=== PATIENT | male | born 1985 | race Caucasian/White ===

== ENCOUNTER 2021-06-22 23:57 | Emergency (ER) | payer MEDICARE ==
--- OUTSIDE RECORDS SUMMARY | 2021-06-23 | XMS REPORT | Continuity of Care Document ---
:1985 Author Organization [facility] t Address [address] [place] [address] Care Team Providers Name Role Phone Margaux Rogers Attending Clinician Unavailable Payers Payer Name Policy Type Policy Number Effective Date Expiration Date S ource Problems This patient has no known problems. Allergies, Adverse Reactions, Alerts Allergy Allergy Status Severity Reaction(s) Onset Inactive Treating Comm ents Source Name Type Date Date Clinician No Known DA [facility] ([place] Medications This patient has no known medications. Procedures This patient has no known procedures. Encounters Start End Encounter Admission Attending Care Care Encounter Source Date/Time Date/Time Type Type Clinicians Facility Department ID 2020-12-13 2020-12-13 Outpatient WENDY Rogers [facility] [id number] [facility] [address] 08:45:00 08:45:00 [id number] [facility] [place] ([place]) Results Test Description Test Time Test Comments Results Result Comments Source MRI Lower Ext Jt Rt WO Con [facility]: ARTEMIO MENSAH : 1985 Sex: M Pt Name: ARTEMIO MENSAH [address] Phys: Koko Rogers MD [place], [place] [id number] : 1985 Age: 35 SEX:M [phone] Exam Date: 12/13/20 Status: REG CLI Acct: [id number] Loc: [facility] Pt Unit #: [id number] Report #: [id number] CC: Koko Rogers MD MRI REPORT Order # Category/Exam [id number] MRI/MRI Lower Ext Jt Rt WO Con ([id number]): . Results MRI of right foot performed without contrast enhancement: HISTORY: Concern for stress fracture of metatarsal. COMPARISON: None. FINDINGS: This examination was performed for evaluation of the forefoot in the area of patient's pain. The marrow signal change within the phalanges and metatarsals are normal. No signs of any stress type reaction or fracture. No evidence of any myositis type change. No fluid within the soft tissues. Lisfranc's joint complex appears intact. Lisfranc ligament is intact. IMPRESSION: No evidence of stress reaction or fracture. Reported By: Jeff Hennessy MD Electronically Signed Date/Time: 12/13/20 1017 Technologist: CONNIE Dictated Date/Time: 12/13/20 1015 Transcribed Date/Time:
--- NOTE | 2021-06-23 02:49 | ER ---
Nurse's Notes [facility] Name: Suresh Soto Age: 36 yrs Sex: Male : 1985 Arrival Date: 06/22/2021 Time: 23:59 Bed 2 Private MD: Diagnosis: Foreign body to the left fourth phalanx, eddie, initial visit Presentation: 06/23 00:03 Chief complaint: Patient states: treble hook in ring finger of left hand. Coronavirus lg3 screen: Client denies travel out of the [place] in the last 14 days. At this time, the client does not indicate any symptoms associated with coronavirus-19. Ebola Screen: No symptoms or risks identified at this time. Initial Sepsis Screen: Does the patient meet any 2 criteria? No. Patient's initial sepsis screen is negative. Initial Sepsis Screen: Does the patient have a suspected source of infection? No. Patient's initial sepsis screen is negative. Risk Assessment: Do you want to hurt yourself or someone else? Patient reports no desire to harm self or others. Onset of symptoms was June 23, 2021. 00:03 Method Of Arrival: Ambulatory lg3 00:03 Acuity: GEOR[place]ES 3 lg3 Triage Assessment: 00:13 General: Appears in no apparent distress. uncomfortable, Behavior is calm, cooperative. lg3 Pain: Complains of pain in left hand Pain currently is 5 out of 10 on a pain scale. EENT: No deficits noted. No signs and/or symptoms were reported regarding the EENT system. Neuro: No deficits noted. Level of Consciousness is awake, alert, obeys commands, Oriented to person, place, time, situation. Cardiovascular: No deficits noted. Denies chest pain, nausea, shortness of breath. Respiratory: No deficits noted. Airway is patent Trachea midline Respiratory effort is even, unlabored, Respiratory pattern is regular, symmetrical. GI: No deficits noted. No signs and/or symptoms were reported involving the gastrointestinal system. Abdomen is round non-distended. : No deficits noted. No signs and/or symptoms were reported regarding the genitourinary system. Derm: Skin is intact, is healthy with good turgor, Skin is dry, fish hook to left ring finger. Musculoskeletal: No deficits noted. No signs and/or symptoms reported regarding the musculoskeletal system. Circulation, motion, and sensation intact. Capillary refill < 3 seconds, Range of motion: intact in all extremities. Injury Description: Puncture. Historical: - Allergies: 00:16 No Known Allergies; lg3 - Home Meds: 00:16 Claritin-D 24 Hour Oral [Active]; lg3 - PMHx: 00:16 allergies; lg3 - PSHx: 00:15 None; lg3 - Immunization history:: Adult Immunizations up to date, Client reports having NOT received the Covid vaccine. Last tetanus immunization: unknown. - Social history:: Smoking status: Patient reports the use of cigarette tobacco products, smokes one pack cigarettes per day. Patient uses alcohol, on a daily basis. Patient/guardian denies using street drugs, IV drugs. Screenin:15 Abuse screen: Denies threats or abuse. Denies injuries from another. Nutritional lg3 screening: No deficits noted. Tuberculosis screening: No symptoms or risk factors identified. Fall Risk None identified. Vital Signs: 00:03 BP 145 / 76; Pulse 91; Resp 16; Temp 98.5; Pulse Ox 99% on R/A; Weight 161.03 kg (R); lg3 Height 6 ft. 2 in. (187.96 cm) (R); Pain 5/10; 00:03 Body Mass Index 45.58 (161.03 kg, 187.96 cm) 3 ED Course: 06/22 23:59 Patient arrived in ED. 06/23 00:06 Triage completed. 3 00:12 Issac Willson PA is PHCP. [place] 00:12 Adan Hendrickson MD is Attending Physician. [place] 00:13 Arm band placed on right wrist. 3 02:05 Jaclyn Armas, MAYRA is Primary Nurse. 3 03:31 removal of hook from finger. Patient did not have IV access during this emergency room kd3 visit. 03:41 Patient has correct armband on for positive identification. kd3 Administered Medications: 02:21 Drug: Marcaine (bupivacaine) (0.5 %) 10 ml Volume: 10 ml; Route: Infiltration; kd3 03:30 Drug: Tetanus-Diphtheria Toxoid Adult 0.5 ml {Generator Worker: Celly. Exp: kd3 06/27/2022. Lot #: [id number]. } Route: IM; Site: right deltoid; Outcome: 02:48 Discharge ordered by . jeanette 03:41 Discharged to home ambulatory. kd3 03:41 Condition: stable 03:41 Discharge instructions given to patient, Instructed on discharge instructions, follow up and referral plans. medication usage, Demonstrated understanding of instructions, follow-up care, medications, Prescriptions given X 3. 03:42 Patient left the ED. kd3 Signatures: Issac Willson PA PA jmm Gibson, Lacie, RN RN lg3 Rianna Farrell Kyli, RN RN kd3 Corrections: (The following items were deleted from the chart) 00:16 00:13 PSHx: None; lg3 lg3 00:16 00:15 PMHx: allergies; lg3 lg3
--- NOTE | 2021-06-23 02:49 | EDPHYS ---
Physician Documentation [facility] Name: Suresh Soto Age: 36 yrs Sex: Male : 1985 Arrival Date: 06/22/2021 Time: 23:59 Bed 2 Private MD: ED Physician Adan Hendrickson HPI: 06/23 00:59 This 36 yrs old Male presents to ER via Ambulatory with complaints of Foreign Body - In [facility] hand-Big treble hook. 00:59 This is a 36-year-old male with no known chronic medical conditions presents emerge [facility] with complaints of left fourth finger foreign body. Patient states he accidentally reached into a tackle box, which inserted one of the barbs from the fishhook into his third fourth finger. Patient is unsure on tetanus immunization status. Historical: - Allergies: 00:16 No Known Allergies; lg3 - Home Meds: 00:16 Claritin-D 24 Hour Oral [Active]; lg3 - PMHx: 00:16 allergies; lg3 - PSHx: 00:15 None; lg3 - Immunization history:: Adult Immunizations up to date, Client reports having NOT received the Covid vaccine. Last tetanus immunization: unknown. - Social history:: Smoking status: Patient reports the use of cigarette tobacco products, smokes one pack cigarettes per day. Patient uses alcohol, on a daily basis. Patient/guardian denies using street drugs, IV drugs. ROS: 00:59 Constitutional: Negative for fever, chills, and weight loss, Cardiovascular: Negative jmm for chest pain, palpitations, and edema, Respiratory: Negative for shortness of breath, cough, wheezing, and pleuritic chest pain. 00:59 MS/extremity: Positive for injury or acute deformity. 00:59 All other systems are negative. Exam: 00:59 Constitutional: This is a well developed, well nourished patient who is awake, alert, jmm and in no acute distress. Head/Face: atraumatic. Eyes: EOMI, no conjunctival erythema appreciated ENT: Moist Mucus Membranes Neck: Trachea midline, Supple Chest/axilla: Normal chest wall appearance and motion. Cardiovascular: Regular rate and rhythm. No edema appreciated Respiratory: Normal respirations, no respiratory distress appreciated Abdomen/GI: Non distended, soft Back: Normal ROM 00:59 Musculoskeletal/extremity: [place] nellie noted to the volar surface of the left fourth distal phalanx. 00:59 Skin: Appearance: Color: normal in color. 00:59 Neuro: Orientation: is normal, Mentation: is normal, Memory: is normal. 00:59 Psych: Behavior/mood is pleasant, cooperative. Vital Signs: 00:03 BP 145 / 76; Pulse 91; Resp 16; Temp 98.5; Pulse Ox 99% on R/A; Weight 161.03 kg (R); lg3 Height 6 ft. 2 in. (187.96 cm) (R); Pain 5/10; 00:03 Body Mass Index 45.58 (161.03 kg, 187.96 cm) lg3 MDM: 00:59 Patient medically screened. [facility] 02:46 Data reviewed: vital signs, nurses notes. Counseling: I had a detailed discussion with jeanette the patient and/or guardian regarding: the historical points, exam findings, and any diagnostic results supporting the discharge/admit diagnosis, the need for outpatient follow up, to return to the emergency department if symptoms worsen or persist or if there are any questions or concerns that arise at home. ED course: 4 mils of 0.5% bupivacaine inserted to the base of the left fourth phalanx. This achieved complete anesthesia. Patient nellie was removed using a hemostat. Patient tolerated the procedure well. There was some bleeding after the procedure. Pressure was held and a pressure dressing wrapped around patient finger. Patient was observed for 30 minutes without increased bleeding. Patient given wound infection return precautions. Patient understood agrees plan of care.. Administered Medications: 02:21 Drug: Marcaine (bupivacaine) (0.5 %) 10 ml Volume: 10 ml; Route: Infiltration; kd3 03:30 Drug: Tetanus-Diphtheria Toxoid Adult 0.5 ml {Moving Consultant: [employer]. Exp: kd3 06/27/2022. Lot #: [id number]. } Route: IM; Site: right deltoid; Disposition: 06:44 Co-signature as Attending Physician, Adan Hendrickson MD. [email or web address] Disposition Summary: 06/23/21 02:48 Discharge Ordered Location: Home [facility] Condition: Stable [facility] Diagnosis - Foreign body to the left fourth phalanx, fishhook, initial visit [facility] Followup: [facility] - With: Private Physician - When: As needed - Reason: Recheck today's complaints, Continuance of care, Re-evaluation by your physician Discharge Instructions: - Discharge Summary Sheet [facility] - Nonsutured Laceration Care [facility] Forms: - Medication Reconciliation Form [facility] - Thank You Letter mauricio - Antibiotic Education mauricio - Prescription Opioid Use [facility] Prescriptions: - Doxycycline Hyclate 100 mg Oral Tablet - take 1 tablet by ORAL route every 12 hours; 20 tablet; Refills: 0, Product [facility] Selection Permitted - Diclofenac Sodium 75 mg Oral Tablet Sustained Release - take 1 tablet by ORAL route 2 times per day; 30 tablet; Refills: 0, Product [facility] Selection Permitted - orphenadrine citrate 100 mg Oral Tablet Sustained Release - take 1 tablet by ORAL route 2 times per day As needed; 20 tablet; Refills: 0, [facility] Product Selection Permitted Signatures: Issac Willson PA PA jmm Gibson, Lacie, MAYRA RN lg3 Adan Hendrickson MD MD mh7 Jaclyn Armas RN RN kd3 Corrections: (The following items were deleted from the chart) 00:16 00:13 PSHx: None; lg3 lg3 00:16 00:15 PMHx: allergies; lg3 lg3
[2021-06-23] MEDS ORDERED: TETANUS & DIPHTHERIA TOX,ADULT 0.5 ML VIAL ONE (03:26)
[2021-06-23 03:47] VITALS: BP 145/76; TEMP 98.5; O2SAT 99
== END 2021-06-23 03:42 | disposition home or self-care (01) ==
LOC: ER 23:57
DX: S60.455A Superficial foreign body of left ring finger, initial encounter (principal); F17.210 Nicotine dependence, cigarettes, uncomplicated; Z23 Encounter for immunization
CPT/HCPCS: 90471; 90714; 99283